=== PATIENT | male | born 1980 | race Caucasian/White ===

== ENCOUNTER 2021-10-31 07:29 | Emergency (ER) | payer OTHER, BC, SELFPAY ==
[2021-10-31 07:34] VITALS: BP 161/107; PULSE 80; O2SAT 95
--- NOTE | 2021-10-31 08:30 | DI.RAD_ITS ---
Exam(s) XR LUMBAR SPINE COMPLETE EXAM: XR LUMBAR SPINE COMPLETE CLINICAL HISTORY: back pain with radiation. TECHNIQUE: 2D digital imaging was performed of the lumbar spine. Six images were obtained. AP, lat eral, right oblique, left oblique and L5-S1 spot views were obtained. COMPARISON: No exams were available for comparison FINDINGS: BONES: No fracture or destructive lesion. Vertebral bodies are unremarkable. Degenerative facet arthr opathy is seen at L4-5 and L5-S1. DISKS: There is disc space narrowing seen in the lower thoracic spine and upper lumbar spine. Endpla te osteophytes are seen predominantly in the lower thoracic spine but also in the mid lumbar spine. ALIGNMENT: Lumbar spinal alignment is within normal limits. No spondylolysis or spondylolisthesis. SOFT TISSUE: Normal. IMPRESSION: 1. Moderate degenerative changes in the lower thoracic and lumbar spine. 2. No acute fracture or subluxation in the lumbar spine. DATA REPOSITORY: RADIATION DOSE DELIVERED:
[2021-10-31] MEDS: MORPHine 10 MG/ML VIAL IM (08:43)
--- NOTE | 2021-10-31 09:29 | ED.GENADUL_ITS ---
Discharge Plan Disposition Patient Disposition: HOME Condition: Stable Discharge Details Clinical Impression: Piriformis muscle pain Primary Care Provider: None,None ED Provider: Manisha Lazo Home Meds and New Rx's Prescriptions: New cyclobenzaprine 10 mg tablet 10 mg PO TID PRNQty: 10 RF: 0 lidocaine [Lidoderm] 5 % adhesive patch,medicated 1 patch topical DAILY Qty: 15 RF: 0 oxycodone 5 mg capsule 5 mg PO Q8H PRNQty: 5 RF: 0 Continued acetaminophen 500 mg Tablet 500 mg PO Q6H PRNRF: 0 ibuprofen 200 mg Tablet 200 mg PO Q6H PRNRF: 0 Discharge Instructions Instructions: Musculoskeletal Pain (ED) Additional Instructions: Light stretching out discussed Flexeril as needed for musculoskeletal pain Take ibuprofen 600 mg only every 8 hours with food You may take Tylenol 650 mg to 1 g every 6 hours as needed pain No lifting greater than 5 pounds blood pressure rechecked by pcp Oxycodone is addictive, do not operate your vehicle for 8 hours after taking this medication and only take it for pain uncontrolled with ibuprofen, Tylenol, and Flexeril Please return with fever, chills, changes in bowel or bladder, strength or sensation change, or with any new or worsening Stand Alone Forms: Physical Therapy Referral, Work Release Medical Decision Making Patient appears well, he is symptomatically improved, he has a nonfocal neurological exam, specifically no evidence of cauda equina syndrome Infected piriformis muscle He is given PT referral and work note supplied He is given a small amount of opiate analgesia, he will take this sparingly, risk of addiction discussed He will not operate his vehicle for 8 hours taking this medication He is given the threshold to return should he have new or worsening complaints, he does not currently have a PCP, he is instructed that he must acquire PCP, he is placed on care management list. Blood pressure recheck by primary care physician Medical Records Medical records reviewed: Yes I reviewed the patient's medical records. Lab Data Lab results reviewed: Yes I reviewed the patient's lab results. HPI General Mode of arrival: ambulatory . Date/Time Provider Initiated Documentation: 10/31/21 08:16 . Limitations to Documentation: no limitations . Information obtained by: patient . HPI Narrative: This 41-year-old male presents with left glutes pain with radiation into his upper thigh. He works as a mechanic and welder and thinks he may have injured himself at work but denies specific event. He does a lot of heavy lifting and standing. He denies any changes in bowel or bladder, groin pain, fever or chills. Chest pain or shortness of breath. Has any abdominal pain. Pain is exacerbated with movement of his leg. Related Data Home Medications Medication Instructions Recorded Confirmed acetaminophen 500 mg PO Q6H PRN 10/31/21 10/31/21 cyclobenzaprine 10 mg PO TID PRN #10 tab 10/31/21 ibuprofen 200 mg PO Q6H PRN 10/31/21 10/31/21 lidocaine [Lidoderm] 1 patch TOPICAL DAILY #15 ea 10/31/21 oxycodone 5 mg PO Q8H PRN #5 cap 10/31/21 Previous Rx's Medication Instructions Recorded cyclobenzaprine 10 mg PO TID PRN #10 tab 10/31/21 lidocaine [Lidoderm] 1 patch TOPICAL DAILY #15 ea 10/31/21 oxycodone 5 mg PO Q8H PRN #5 cap 10/31/21 Allergies Allergy/AdvReac Type Severity Reaction Status Date / Time No Known Allergies Allergy Unverified 10/31/21 07:37 General Stated Complaint: Nk/Back Pain JUAN: 4 PFSH All Active Problems (Updated 10/31/21 @ 09:37 by [facility]) Piriformis muscle pain (Acute) Social History Smoking/Tobacco Use Status: Current every day Tobacco Type: cigarettes Smoking risk assessment performed?: Yes Alcohol Intake: never Drug use: Daily Substance use type: marijuana Do you feel safe at home: Yes Do you feel safe in your relationship?: Yes Exam Const General: cooperative and comfortable [facility] Head: normal to inspection Resp Effort & Inspection: normal respiratory effort Cardio Rate: regular rate Other: distal pulses intact GI Other: non-tender abdominal exam no abdominal bruit or pulsatile mass Back/Spine/Pelvis Back: no CVA tenderness Back/spine/pelvis image: 1. tenderness with palpation Skin General skin exam: no rashes or lesions noted Neuro General: patient alert and patient oriented x3 Cranial Nerves: CN's II-XI intact bilaterally Sensory Exam: no sensory deficits noted Other: antalgic gait, neg babinski and SLR, DTR's/strength/sensation intact to all 4 extremities Course Vital Signs Vital signs: Vital Signs Pulse 80 12/22/21 07:34 Blood Pressure 161/107 H 10/31/21 07:34 Pulse Oximetry 95 10/31/21 07:34 Temperature Source Temporal Artery Scan 10/31/21 07:34 Pulse 80 10/31/21 07:34 Respiratory Effort Non-Labored 10/31/21 07:35 Blood Pressure 161/107 H 10/31/21 07:34 Blood Pressure Position Sitting 10/31/21 07:34 Pulse Oximetry 95 10/31/21 07:34 Oxygen Delivery Method Room Air 10/31/21 07:34 Oxygen Flow Rate 0 10/31/21 07:34 Pain Level 10 10/31/21 08:43
[2021-10-31 09:45] VITALS: BP 138/97; PULSE 75; TEMP 36.4; O2SAT 96
--- NOTE | 2021-10-31 11:10 | NUR.NOTE ---
Referral for a PCP requested by the provider as the patient doesn't have one, put referral in the Dba's box.
--- NOTE | 2021-11-01 10:10 | PDOC.ERCMACT ---
- If Service Date Differs Date of service: 11/01/21 Time of Service: 10:10 Care Management Activity Note Mathew is seen in the ED for piriformis muscle pain. At the request of ED provider, ASIF coordinates a referral to ANDRES Merritt, of [facility], on-call provider, to assist Mathew in obtaining a follow up appointment and in establishing care with a PCP. Mathew has [employer] for insurance.
== END 2021-10-31 09:48 | disposition home or self-care (01) ==
PROVIDERS: Emergency Provider Physician Assistant
DX: M79.18 Myalgia, other site (principal); M54.50 Low back pain, unspecified
CPT/HCPCS: 96372; 99284; 72110; 99283; J2270